=== PATIENT | male | born 1990 ===

== ENCOUNTER 2022-10-11 17:01 | Emergency (ER) | payer SELFPAY ==
[~2022-10-11] VITALS: Ht 165.1 cm; Wt 77.0 kg
[2022-10-11] MEDS ORDERED: ACET-1158 PO (23:33)
[2022-10-11] MEDS ORDERED: AMOX-277 PO (23:33)
[2022-10-11 23:58] VITALS: BP 124/80
== END 2022-10-12 00:39 | disposition home or self-care (01) ==
LOC: ER 17:01
DX: J06.9 Acute upper respiratory infection, unspecified (principal); Z20.822 Contact with and (suspected) exposure to COVID-19
CPT/HCPCS: 36415; 71045; 87426; 87804